=== PATIENT | male | born 1970 | race Caucasian/White ===

== ENCOUNTER 2018-10-20 06:10 | Day surgery (SDC) | payer BC ==
[2018-10-20] VITALS (7 sets, daily range): BP systolic 109–125; BP diastolic 66–89
[~2018-10-20] VITALS: Ht 182.9 cm; Wt 79.4 kg
[~2018-10-20 06:10] MED LIST: ATRIPLA TABLET1 EAC1 ORAL; LYRICA75 M1 ORAL; PROPECIA1 MG PO; [UNRECOGNIZED DRUG - OTHER] PO
[2018-10-20] MEDS ORDERED: Midazolam 2mg/2ml Inj ONE (06:38)
[2018-10-20] MEDS ORDERED: fentaNYL 100 mcg/2 mL IV ONE (06:38)
[2018-10-20] MEDS ORDERED: Bupivacaine 0.5% Inj 30 ml vial INJ ONE (06:48)
[2018-10-20] MEDS ORDERED: LR 1000ml ONE (07:00)
[2018-10-20] MEDS ORDERED: Sterile Water Irrig 1000ml IRRIG ONE (07:00)
[2018-10-20] MEDS ORDERED: Ketorolac 30mg Inj ONE (07:00)
[2018-10-20] MEDS ORDERED: Propofol 200mg/20ml IV ONE (07:00)
--- NOTE | 2018-10-20 07:21 | Pre-Procedure Note/Attestation ---
Pre-Procedure Note/Attestation Complete Prior to Procedure Planned Procedure: left Procedure Narrative: left carpal tunnel release Indications for Procedure Pre-Operative Diagnosis: left carpal tunnel syndrome Attestation I attest that I discussed the nature of the procedure; its benefits; risks and complications; and alternatives (and the risks and benefits of such alternatives ), prior to the procedure, with the patient (or the patient's legal inbound call center representative). I attest that, if there was a reasonable possibility of needing a blood transfusion, the patient (or the patient's legal inbound call center representative) was given the [facility] standardized written summary, pursuant to the Alexis Shelton Blood Safety Act ([place] Health and Safety Code # 1645, as amended). I attest that I re-evaluated the patient just prior to the surgery and that there has been no change in the patient's H&P, except as documented below: Denzel Cutler MD Oct 20, 2018 07:20
[2018-10-20] MEDS ORDERED: NS Irrig 1000ml IRRIG ONE (07:36)
[2018-10-20] MEDS ORDERED: LR 1000ml 1,000 ML IVLG SCH (07:44)
--- NOTE | 2018-10-20 07:44 | Anethesia Preoperative Eval ---
Anesthesia Pre-op PMH/ROS General Date of Evaluation: Oct 20, 2018 Time of Evaluation: 07:06 Anesthesiologist: Lorrie ASA Score: ASA 2 Mallampati Score Class I : Soft palate, uvula, fauces, pillars visible Class II: Soft palate, uvula, fauces visible Class III: Soft palate, base of uvula visible Class IV: Only hard plate visible Mallampati Classification: Class II Surgeon: Edmundo Diagnosis: L CTS Surgical Procedure: L CTR Anesthesia History: none Family History: no anesthesia problems Allergies: Coded Allergies: PENICILLINS (Verified Allergy, Unknown, 10/19/18) PLACEBO -NO EFFECT Medications: see eMAR Patient NPO?: Yes Past Medical History Cardiovascular: Denies: HTN, CAD, [place], valve dz, arrhythmia, other Pulmonary: Reports: asthma - mild; Denies: COPD, CHIARA, other Gastrointestinal/Genitourinary: Reports: GERD; Denies: CRI, ESRD, other Neurologic/Psychiatric: Reports: depression/anxiety; Denies: dementia, CVA, TIA, other Endocrine: Denies: DM, hypothyroidism, steroids, other HEENT: Denies: cataract (L), cataract (R), glaucoma, MECHOOPDA (L), MECHOOPDA (R), other Hematology/Immune: Reports: other - HIV + table on antivirals; Denies: anemia, DVT, bleeding disorder Musculoskeletal/Integumentary: Denies: OA, RA, DJD, DDD, edema, other PMH Narrative: as above PSxH Narrative: R CTR, hernia repair Anesthesia Pre-op Phys. Exam Physician Exam Last Vital Signs Date Time Temp Pulse Resp B/P (MAP) Pulse Ox O2 Delivery O2 Flow Rate FiO2 10/20/18 06:40 Room Air 10/20/18 06:34 97.2 65 18 125/89 97 Constitutional: NAD Neurologic: CN 2-12 intact Cardiovascular: RRR, no M/R/G Respiratory: CTA Gastrointestinal: S/NT/ND Airway Exam Mallampati Score: Class II MO: full Neck: flexible ROM: full Teeth: intact Dentures: no upper, no lower Anesthesia Pre-op A/P Labs see chart Studies Pre-op Studies: EKG - NR Risk Assessment & Plan Assessment: ASA 2 Plan: GA with LMA Status Change Before Surgery: No Pre-Antibiotics Drug: Ancef 2 gr. Given Within 1 Hr of Incision: Yes Time Given: 07:22 Dougie Andrew MD Oct 20, 2018 07:44
[2018-10-20] MEDS ORDERED: Metoclopramide 10mg/2ml Inj IVP PRN (07:45)
[2018-10-20] MEDS ORDERED: DiphenhydrAMINE 50mg/ml Inj IVP PRN (07:45)
[2018-10-20] MEDS ORDERED: Meperidine 50mg/ml Inj(FOR RIGORS ONLY) IV PRN (07:45)
[2018-10-20] MEDS ORDERED: Ketorolac 30mg Inj IV PRN (07:45)
--- NOTE | 2018-10-20 08:17 | Immediate Post-Op Evaluation ---
Immediate Post-Op Evalulation Immediate Post-Op Evalulation Procedure: L carpal tonnel release Date of Evaluation: Oct 20, 2018 Time of Evaluation: 08:16 IV Fluids: 600 Blood Products: none Estimated Blood Loss: min Urinary Output: none Blood Pressure Systolic: 112 Blood Pressure Diastolic: 68 Pulse Rate: 76 Respiratory Rate: 20 O2 Sat by Pulse Oximetry: 99 Temperature (Fahrenheit): 97.4 Pain Score (1-10): 2 Nausea: No Vomiting: No Complications none Patient Status: awake, patent, none Hydration Status: adequate Dougie Andrew MD Oct 20, 2018 08:17
--- NOTE | 2018-10-20 08:21 | Brief Operative Note ---
Immediate Post Operative Note Operative Note Pre-op Diagnosis: left carpal tunnel syndrome Post-op Diagnosis: same as pre-op Additional Surgeons: Bharath Quintana Anesthesia: general Specimen: none Complications: none Condition: stable Fluids: 100 lr Estimated Blood Loss: minimal Drains: none Tourniquet time: 0 Implant(s) used?: No Denzel Cutler MD Oct 20, 2018 08:21
--- NOTE | 2018-10-20 09:03 | 48 Hour Post Anesthesia Eval ---
Post Anesthesia Evaluation Procedure: L carpal tunnel release Date of Evaluation: Oct 20, 2018 Time of Evaluation: 09:02 Blood Pressure Systolic: 115 0: 76 Pulse Rate: 68 Respiratory Rate: 20 Temperature (Fahrenheit): 97.6 O2 Sat by Pulse Oximetry: 98 Airway: patent Nausea: No Vomiting: No Pain Intensity: 1 Hydration Status: adequate Cardiopulmonary Status: stable Mental Status/LOC: patient returned to baseline Follow-up Care/Observations: n/a Post-Anesthesia Complications: none Follow-up care needed: ready to discharge Dougie Andrew MD Oct 20, 2018 09:03
[2018-10-20] MEDS ORDERED: Norco 5mg/325mg tab ORAL SCH (09:30)
--- NOTE | 2018-10-23 21:00 | Operative Note - Dictated ---
DATE OF OPERATION: 10/20/2018 PREOPERATIVE DIAGNOSIS: Left wrist carpal tunnel syndrome. POSTOPERATIVE DIAGNOSIS: Left wrist carpal tunnel syndrome. NAME OF THE OPERATION: Left carpal tunnel release, open. SURGEON: Denzel Cutler M.D. TRAFFIC SIGN ERECTION SUPERVISOR: Bharath Quintana M.D. INDICATIONS FOR OPERATION: This is a gentleman who suffered bilateral carpal tunnel syndrome as a result of trauma. He is several weeks status post successful right carpal tunnel release. He now presents for left carpal tunnel release. ESTIMATED BLOOD LOSS: 10 mL. TOURNIQUET TIME: Zero. ANESTHESIA: General LMA. DESCRIPTION OF PROCEDURE IN DETAIL: The patient was brought into the operating room and identified as Neil Christina. A tourniquet was applied to the arm but not inflated during the procedure. The left arm was prepped and draped in the usual sterile fashion. A longitudinal incision was made beginning at the distal palmar crease and extending up across the mid portion of the palm at the hypothenar crease. Hemostasis was obtained as bleeding was encountered. Using careful dissection with a hemostat and with a knife, the transverse carpal ligament was identified. Hemostat was placed beneath the transverse carpal ligament protecting the nerve. The transverse carpal ligament was divided exposing the median nerve. There was a mild hourglass deformity noted of the median nerve. the median nerve was positively identified. Dissection was carried out carefully staying on the ulnar side of the nerve both proximally and distally until the nerve was completely freed. Once this was accomplished, the carpal tunnel was palpated to be certain there were no deep masses and none were encountered. The wound was thoroughly irrigated. The skin was closed using 4-0 nylon. A sterile dressing was applied. A bulky hand dressing with volar splint was applied. The patient was awakened in the operating room in satisfactory condition. Denzel Cutler M.D. DR: Elena JOB#: [id number] CC: Denzel Cutler M.D.; Fax#: [phone]
== END 2018-10-20 10:20 | disposition home or self-care (01) ==
LOC: SUR 06:10
DX: G56.02 Carpal tunnel syndrome, left upper limb (principal); J45.909 Unspecified asthma, uncomplicated; F32.9 Major depressive disorder, single episode, unspecified; F41.9 Anxiety disorder, unspecified; Z88.0 Allergy status to penicillin
CPT/HCPCS: 64721; J0690; J1885; J2250; J2405; J2704; J3010; J3490; 94003; 94150